=== PATIENT | female | born 1950 | race Caucasian/White ===

== ENCOUNTER 2016-08-30 14:11 | Emergency (ER) | payer OTHER ==
[~2016-08-30] VITALS: Ht 154.9 cm; Wt 68.5 kg
[~2016-08-30 14:11] MED LIST: FOS10 PO; LAC PO; MACROBID100 MG PO; MEDDP PO; MOT800 PO; NEURONTIN400 MG PO; OSCD PO; PER5 PO; PROZ20 PO; ROBAXIN500 MG GT; ZOCOR40 MG PO
[2016-08-30 17:05] VITALS: BP 127/78
== END 2016-08-30 17:05 | disposition home or self-care (01) ==
LOC: ED 14:11
DX: Z76.0 Encounter for issue of repeat prescription (principal); G89.29 Other chronic pain; M54.9 Dorsalgia, unspecified; I10 Essential (primary) hypertension; S09.90XA Unspecified injury of head, initial encounter; X58.XXXA Exposure to other specified factors, initial encounter; Y93.89 Activity, other specified; Y99.8 Other external cause status; Y92.89 Other specified places as the place of occurrence of the external cause